=== PATIENT | female | born 1945 | race Hispanic/Latino ===

== ENCOUNTER 2018-06-27 17:22 | Inpatient (IN) | payer BC, MEDICARE ==
[~2018-06-27 17:22] MED LIST: ISOVUE-370 76%-LOCM 1 ML ONE
[2018-06-27 18:00] LABS: Base Excess-Venous -20.8 mmol/L (0 (+/- 2.5)); Bicarbonate (HCO3v) 12.5 mmol/L (1.0-85.0); CO2 Tension (PvCO2) 69.6 mmHg (41.0-51.0); Calcium, Ionized 1.09 mmol/L (1.12-1.32); Hemoglobin - Calc 10.4 g/dL (12.0-18.0); Lactate 12.13 mmol/L (0.50-2.20); O2 Tension (PvO2) 54.2 mmHg (35.0-45.0); Potassium 3.9 mmol/L (3.4-4.7); T. Carbon Dioxide 14.7 mmol/L (1.0-85.0); pH (Venous) 6.864 (7.35-7.45); vO2 Saturation-calc 59.8 % (94-98)
[2018-06-27] MEDS ORDERED: EPINEPHrine 1 mg/ml MDV (1ml Charge) ONE (18:00)
[2018-06-27] MEDS ORDERED: EPINEPHrine 1 MG/10 ML Abboject SYRINGE ONE (18:00)
[2018-06-27] MEDS ORDERED: Sodium Bicarb 50 MEQ/50 ML Abboject 8.4% SYRINGE ONE (18:00)
[2018-06-27] MEDS ORDERED: Calcium Chloride 1 GM/10 ML Abboject SYRINGE ONE (18:00)
[2018-06-27 18:09] LABS: Actual Bicarbonate (HCO3a) 15.7 mEq/L (22-28); Analyzer IN Cardio ER; CO2 Tension 56.2 mmHg (35.0-45.0); Calcium, Ionized 1.02 mmol/L (1.12-1.30); Carboxyhemoglobin (COHb) 0.3 gm% (0.0-3.0); Hemoglobin (Hb) 8.7 g/dL (12.0-16.0); O2 Tension (PaO2) 190.8 mmHg (> 70.0); Potassium - ABG Lab 3.86 mmol/L (3.70-5.30); pH, Arterial 7.06 (7.35-7.45)
[2018-06-27 18:10] LABS: Puncture Site RRA
[2018-06-27 18:50] LABS: Mean Corpuscular HGB CONC 29.7 g/dL (32.0-36.0); Mean Corpuscular Hemoglobin 26.2 pg (27.0-31.0); Mean Corpuscular Volume 88.2 fL (78.0-98.0); RBC Distribution Width 12.9 % (11.5-14.5); White Blood Cell (WBC) Count 20.3 thou/uL (4.8-10.8)
--- NOTE | 2018-06-27 18:58 | RAD ---
CHEST ONE VIEW: History: Chest pain Comparison: 11-10-16 FINDINGS: Cardiac silhouette is magnified. Pulmonary vasculature engorged with widespread reticular nodular int erstitial prominence. Mediastinum is midline with aortic calcification. Tip of an endotracheal cathet er overlies the thoracic inlet. Nasogastric tube is seen to the level of the distal esophagus but not seen to extend into the stomach. No evidence of pneumothorax. IMPRESSION: 1. Pulmonary edema. 2. Nasogastric tube should be advanced approximately 15 cm for better positioning. It appears to be c oiled over the posterior pharynx. 3. Endotracheal catheter is in good radiographic position. 4. Atherosclerosis. POS: [facility]
[2018-06-27 19:04] LABS: ALT (SGPT) 778 U/L (8-55); AST (SGOT) 742 U/L (5-34); Albumin 3.1 g/dL (3.4-4.8); Alkaline Phosphatase 107 U/L (40-150); Anion Gap 38 mmol/L (10-20); BUN (Urea Nitrogen) 23 mg/dL (9.8-20.1); Bilirubin, Total Less than 0.2 mg/dL (0.2-1.2); CK (CPK) 200 U/L (29-168); Calc. Creatinine Clearance 0 mL/min (70-130); Chloride 105 mmol/L (98-107); Estimated GFR-MDRD 34; Glucose 405 mg/dL (83-110); Potassium 4.3 mmol/L (3.5-5.1); Protein, Total 6.1 g/dL (6.0-8.3); Sodium 148 mmol/L (136-145)
--- NOTE | 2018-06-27 19:04 | CT ---
CT HEAD NONCONTRAST: History: Altered mental status. Comparison: 01-12-18 FINDINGS: There is no evidence of acute intracranial hemorrhage. Encephalomalacia in the left frontal lobe is s imilar in appearance to the prior study. At first glance, there is subtle loss in valentine white junction at the periphery and at each basal ganglia. Review of the patient's prior study, shows that this is a normal look for this patient. Dystrophic calcification is apparent at the basal ganglia bilaterally . IMPRESSION: Chronic type findings are stable. No acute intracranial abnormalities are reliably demonstrated. POS: [facility]
[2018-06-27 19:10] LABS: CKMB 5.2 ng/mL (0-6.6); Troponin I 0.145 ng/mL (< 0.028)
[2018-06-27 19:12] LABS: Carbon Dioxide 9 mmol/L (23-31)
[2018-06-27 19:14] LABS: Band 4 % (5-11); Lymphocytes 65 % (21-51); MDiff Complete? YES; Mean Platelet Volume 10.2 fL (7.4-10.4); Metamyelocyte 2 % (0-0); Monocytes 3 % (0-10); Neutrophil 26 % (42-75); PLT Morphology Comment Appears Decreased; Platelet Count 100 thou/uL (130-400); Poikilocytosis SLIGHT = 6-15 cells (100X) (0-5/hpf)
[2018-06-27] MEDS ORDERED: Acetaminophen 650 MG in Premix Bag 1 BAG IVPB PRN (19:51)
--- NOTE | 2018-06-27 20:22 | RAD ---
CHEST ONE VIEW: History: Nasogastric tube repositioning. Comparison: 06-27-18 FINDINGS: Nasogastric tube has been repositioned and now descends the stomach. Endotracheal catheter is in good radiographic position. IMPRESSION: Pulmonary edema and other findings are otherwise stable. POS: [facility]
[2018-06-27 20:28] LABS: Bilirubin Negative (Negative); Blood, Urine Large (Negative); Clarity CLOUDY (Clear); Glucose, Urine (Dipstick) 250 mg/dL (Negative); Leukocyte Negative (Negative); Nitrite Negative (Negative); Protein, Urine (Dipstick) > or equal to 300 mg/dL (Neg-Trace); Specific Gravity, Urine 1.014 (1.002-1.036); Urobilinogen 0.2 mg/dL (0.2-1.0); pH, Urine 6.5 (5.0-9.0)
[2018-06-27 20:32] LABS: Bacteria/HPF 1+ HPF (None Seen); Squamous Epithelial 21-50 HPF (0-3)
[2018-06-27 20:35] LABS: Pathc Cast-AUWi Flag 3.17 (0-2.49)
[2018-06-27 20:38] LABS: INR-International Normal Ratio 3.4; Prothrombin Time 34.6 SEC (12.0-14.7)
--- NOTE | 2018-06-27 20:42 | CT ---
CT ANGIO OF CHEST WITH IV CONTRAST AND 3D MIP IMAGING: History: Chest pain, dyspnea. FINDINGS: There is good contrast opacification of the pulmonary arteries and thoracic aorta with bovine origin of the great vessels. Endotracheal catheter and nasogastric tube are apparent. Endotracheal catheter approaches the stephen. Dense infiltrate is present at the right posterior lung base. Patchy areas of infiltrate also involve the right upper lobe and left lower lobe. No pneumothorax or mediastinal adenopathy are apparent. IMPRESSION: 1. No CT evidence of pulmonary embolus. 2. Dense bilateral parenchymal infiltrates may represent atelectasis given the appearance, or less li ritu, inflammation. POS: [facility]
[2018-06-27 20:48] LABS: PTT 155.7 SEC (22.9-36.1)
[2018-06-27] MEDS ORDERED: CCU Electrolyte Replacement 1 EACH FS ONE (21:12)
[2018-06-27] MEDS ORDERED: Dextrose 5% in Water 1,000 ML IV SCH (21:12)
[2018-06-27] MEDS ORDERED: Potassium Chloride 40 MEQ in Premix Bag 1 BAG IVPB PRN (21:27)
[2018-06-27] MEDS ORDERED: Potassium Chloride 20 MEQ TAB PO PRN (21:27)
[2018-06-27] MEDS ORDERED: Magnesium Oxide 400 MG TAB PO PRN ×2 (21:27)
[2018-06-27] MEDS ORDERED: Potassium Phosphate 12 MMOL in Sodium Chloride 0.9% 250 ML 250 ML IV PRN (21:27)
[2018-06-27] MEDS ORDERED: Potassium Chloride 40 MEQ in Sodium Chloride 0.9% 250 ML 250 ML IVPB PRN (21:27)
[2018-06-27] MEDS ORDERED: Potassium Phosphate 9 MMOL in Sodium Chloride 0.9% 100 ML IVPB PRN (21:27)
[2018-06-27] MEDS ORDERED: Magnesium 2 GM/NS 0.9% 100 ML 2 GM in Premix Bag 1 BAG IVPB PRN (21:27)
[2018-06-27] MEDS ORDERED: CCU ELECTROLYTE REPLACEMENT PROTOCOL FS PRN (21:27)
[2018-06-27] MEDS ORDERED: Potassium Phosphate 15 MMOL in Sodium Chloride 0.9% 250 ML 250 ML IV PRN (21:27)
[2018-06-27] MEDS: Norepinephrine 8 MG/0.9% NS 250 ML IVPB SCH (21:46)
[2018-06-27] MEDS ORDERED: Dextrose 50% Abboject 50 ML SYRINGE SLOW IVP PRN (22:01)
[2018-06-27] MEDS ORDERED: Dextrose 5% in Water 1,000 ML IV PRN (22:01)
[2018-06-27 22:03] VITALS: BMI 29.6
[2018-06-27 22:26] LABS: Lactic Acid 14.3 mmol/L (0.5-2.2)
[2018-06-27] MEDS: HumaLOG 300 UNITS/3 ML VIAL SC PRN (22:37)
[2018-06-27] MEDS: Piperacillin/Tazobactam 3.375 GM in Sodium Chloride 0.9% 100 ML IVPB SCH (23:19)
[2018-06-27] MEDS: EPINEPHrine 1 MG, Admixture Fee 1 EACH in Dextrose 5% in Water 250 ML IVPB SCH (23:51)
[2018-06-28] MEDS ORDERED: Sodium Chloride 0.9% 500 ML IV SCH (01:00)
--- NOTE | 2018-06-28 01:11 | CON ---
DATE OF CONSULTATION: 06/27/2018 REASON FOR CONSULTATION: Out of hospital arrest. HISTORY OF PRESENT ILLNESS: This is a 72-year-old female who apparently became unresponsive at home while using the bathroom earlier today. She received at least 30 minutes of CPR between family, para medics, and ER staff before achieving return of spontaneous circulation. She is a former employee of the hospital here. PAST MEDICAL HISTORY: 1. She has had a brain hemorrhage back in 10/2016. 2. Hypertension. 3. Breast cancer. PAST SURGICAL HISTORY: Did not require operative therapy of the previous brain hemorrhage. ALLERGIES: None. MEDICATIONS PRIOR TO ADMISSION: Not known at this time. REVIEW OF SYSTEMS: Cannot be obtained because the patient is unresponsive and on mechanical ventilat ion. PHYSICAL EXAMINATION: VITAL SIGNS: Heart rate 126, O2 sat 100%, temperature 95.9, blood pressure 112/51, respiratory rate 20. NEUROLOGIC: She has no spontaneous respirations. Her pupils are 4 mm, nonreactive to light. She guzman s no corneal reflex. No oculocephalic reflex. No gag reflex when her extremities were stimulated. She has no reflexes or response to pain. This exam was done with the patient not having received sed ation or paralytics. HEENT: Otherwise unremarkable except for 6.0 endotracheal tube in the mouth. NECK: She has a C-collar on. No obvious JVD, no bruits. LUNGS: Coarse breath sounds bilaterally. CARDIOVASCULAR: S1, S2 tachycardic without murmur. ABDOMEN: Soft, obese, nontender, nondistended. EXTREMITIES: Without clubbing, cyanosis, or edema. LABORATORY DATA: White blood cell count 20.3, hemoglobin 10, hematocrit 33.5, platelet count 100 wit h 4% bands, 26% neutrophils, 65% lymphocytes. Initial pH was 6.84. Repeat blood gas showed pH of 7. 06, pCO2 of 56, pO2 of 190 that was on SIMV rate 20, tidal volume 450, PEEP 5, pressure support 10, F iO2 70%. Sodium 142, potassium 3.9, chloride 112, CO2 of 9, BUN 23, creatinine 1.5, glucose 405, aida ous lactate 24.1, AST 742, ALT 778. CPK 200, CK-MB 5.2. Troponin is 0.145. Albumin is 3.1. IMAGING: The head CT performed did not show any acute intracranial hemorrhage. She has encephalomal acia, probably from the previous brain hemorrhage. Chest x-ray demonstrated cardiomegaly, some pulmo nary edema. ET tube was in good position. Nasogastric tube was in the mouth that has since been rep laced and advanced. ASSESSMENT: 1. Sudden . It would appear that the patient either had a pulmonary embolism or a cardiac arrh ythmia. It does not appear that she has had a myocardial infarction or any type of catastrophic cent ral nervous system event other than what is resulted with prolonged CPR. 2. Anoxic brain injury. PLAN: 1. The patient will be kept on mechanical ventilation and vasopressor for the time being. I spoke w ith the son. I was direct with him and told him I did not think this illness was survivable and I daniels spect the patient has probably advanced to brain , although that determination should probably b e made tomorrow morning. 2. We will go ahead and get a CT pulmonary angiogram to exclude the possibility of pulmonary embolis m. 3. She will be covered with broad-spectrum IV antibiotics, although I do not think the events have n ot resulted from sepsis-type situation. 3. She is Dr. Perry's patient. I will turn over care to him tomorrow.
[2018-06-28] MEDS ORDERED: Norepinephrine 8 MG/0.9% NS 250 ML ONE (02:16)
[2018-06-28] MEDS: Norepinephrine 8 MG/0.9% NS 250 ML IVPB SCH (02:17)
[2018-06-28] MEDS ORDERED: Norepinephrine 8 MG/0.9% NS 250 ML IVPB SCH (02:30)
[2018-06-28] MEDS ORDERED: Sodium Chloride 0.9% 500 ML IVPB SCH (03:15)
[2018-06-28] MEDS: HumaLOG 300 UNITS/3 ML VIAL SC PRN (04:52)
[2018-06-28] MEDS: EPINEPHrine 1 MG, Admixture Fee 1 EACH in Dextrose 5% in Water 250 ML IVPB SCH (04:53)
[2018-06-28] MEDS: Piperacillin/Tazobactam 3.375 GM in Sodium Chloride 0.9% 100 ML IVPB SCH (05:03)
[2018-06-28 05:38] LABS: ALT (SGPT) 747 U/L (8-55); AST (SGOT) 2161 U/L (5-34); Albumin 2.9 g/dL (3.4-4.8); Alkaline Phosphatase 134 U/L (40-150); Anion Gap 24 mmol/L (10-20); BUN (Urea Nitrogen) 33 mg/dL (9.8-20.1); Bilirubin, Total 0.3 mg/dL (0.2-1.2); Calc. Creatinine Clearance 22 mL/min (70-130); Calcium 8.2 mg/dL (7.8-10.44); Carbon Dioxide 13 mmol/L (23-31); Chloride 113 mmol/L (98-107); Estimated GFR-MDRD 20; Globulin 2.7 g/dL (2.4-3.5); Glucose 213 mg/dL (83-110); Potassium 2.5 mmol/L (3.5-5.1); Protein, Total 5.6 g/dL (6.0-8.3); Sodium 147 mmol/L (136-145)
[2018-06-28 05:54] LABS: Lactic Acid 13.8 mmol/L (0.5-2.2)
[2018-06-28 06:07] LABS: Band 33 % (5-11); Hemoglobin 9.6 g/dL (12.0-16.0); Lymphocytes 26 % (21-51); MDiff Complete? YES; Mean Corpuscular Hemoglobin 26.6 pg (27.0-31.0); Mean Corpuscular Volume 85.7 fL (78.0-98.0); Mean Platelet Volume 8.7 fL (7.4-10.4); Monocytes 4 % (0-10); Myelocyte 2 % (0-0); Neutrophil 35 % (42-75); PLT Morphology Comment Appears Adequate; Platelet Count 207 thou/uL (130-400); RBC Distribution Width 12.6 % (11.5-14.5); Red Blood Cell (RBC) Count 3.61 mill/uL (4.20-5.40); White Blood Cell (WBC) Count 13.3 thou/uL (4.8-10.8)
[2018-06-28 07:30] VITALS: BP 56/39
[2018-06-28 07:37] LABS: Actual Bicarbonate (HCO3a) 11.9 mEq/L (22-28); Base Excess (BEa) -17.4 mEq/L (-2.0 to +3.0); CO2 Tension 43.2 mmHg (35.0-45.0); Carboxyhemoglobin (COHb) 0.6 gm% (0.0-3.0); Hemoglobin (Hb) 9.4 g/dL (12.0-16.0)
--- NOTE | 2018-06-28 07:38 | PRG ---
DATE OF SERVICE: 06/28/2018 Thirty-five minutes critical care time. SUJECTIVE: The patient remains intubated on mechanical ventilation. There has been no change in her status overnight. She has become refractory to vasopressors. OBJECTIVE: VITAL SIGNS: On exam, temperature is 97.7, pulse 83, blood pressure 72/42. Total intake 2753 and ou tput 552. NEUROLOGIC: Neurologically, pupils are fixed and dilated. She has no oculocephalic reflex. She has no spontaneous respirations. She has no gag reflex. She has no withdrawal to stimulation in any of her extremities. She has no movement of her toes to Babinski. HEENT: Otherwise, unremarkable. NECK: No JVD. LUNGS: Coarse breath sounds. CARDIOVASCULAR: S1 and S2, regular. ABDOMEN: Soft. EXTREMITIES: No edema. LABORATORY DATA: Sodium 147, potassium 2.5, chloride 113, CO2 of 13, BUN 33, creatinine 2.3, glucose 213, lactate 13.8, AST 2161, ALT 747. ABG pending. White blood cell count 13.3, hemoglobin 9.6, he matocrit 30.9, platelet count 207. Chest x-ray demonstrates diffuse bilateral infiltrative changes, right greater than left. ASSESSMENT: 1. Probable clinical brain . 2. Prolonged CPR. 3. Cardiac arrest, which I think was probably secondary to cardiac arrhythmia. 4. Aspiration pneumonia. 5. Multiple organ failure. PLAN: Proceed with apnea testing to confirm clinical brain and then probably withdraw care aft erwards.
--- NOTE | 2018-06-28 07:41 | OP ---
DATE OF PROCEDURE: 06/27/2018 PROCEDURE: Central line placement. PREOPERATIVE DIAGNOSIS: Poor IV access, need for vasopressors support. POSTOPERATIVE DIAGNOSIS: Poor IV access, need for vasopressors support. ANESTHESIA: None. DESCRIPTION OF PROCEDURE: This was done on an emergent basis in the emergency room. His family was not present at that time. The left femoral area was cleansed with chlorhexidine and draped sterilely. Using modified Seldinger technique, a triple-lumen venous catheter was placed in the left femoral vein without difficulty. T hree ports flushed venous blood.
[2018-06-28 07:54] VITALS: TEMP 97.5
[2018-06-28 08:23] LABS: O2 Tension (PaO2) 20.3 mmHg (> 70.0); Puncture Site RFA; pH, Arterial 7.06 (7.35-7.45)
[2018-06-28] MEDS ORDERED: Pantoprazole 40 MG VIAL IVP SCH (09:00)
[2018-06-28] MEDS ORDERED: Enoxaparin Sodium 40 MG/0.4 ML SYRINGE SC SCH (09:00)
[2018-06-28] MEDS ORDERED: Prevnar 13-Val Conj/PF 0.5 ML SYRINGE IM ONE (09:00)
--- NOTE | 2018-06-28 09:26 | RAD ---
SINGLE VIEW OF THE CHEST: Comparison: 06-27-18 History: Ventilated patient with respiratory failure. FINDINGS: Single view of the chest shows a normal sized cardiomediastinal silhouette. The lines and tubes are u nchanged in position. Diffuse mixed alveolar and interstitial opacities are seen, unchanged. IMPRESSION: Stable exam. POS: [facility]
[2018-06-28] MEDS ORDERED: EPINEPHrine 4 MG, Admixture Fee 1 EACH in Dextrose 5% in Water 250 ML IVPB SCH (09:48)
--- NOTE | 2018-06-28 10:51 | HP ---
CHIEF COMPLAINT: Found down. HISTORY OF PRESENT ILLNESS: This patient is a 72-year-old female who apparently was found down by neli harris in her bathroom. She was down for possibly about 30 minutes. EMS was subsequently called and t he family attempted CPR with compressions. On arrival by EMS, the patient was intubated and ACLS was initiated. The patient received 3 rounds of epinephrine and had CPR in progress. She received an a mp of bicarbonate. Pulse ox was 86 to 88, D-stick was 498. The patient had initial rhythm of asysto le; however, she did have pulse recovered in the Emergency Department. There she was seen by Dr. Jerrod graham. She is currently maintained on ventilator and epinephrine drip with Levophed drip ordered. Th e patient has received no sedation. REVIEW OF SYSTEMS: Unobtainable due to the patient's unconscious state. PAST MEDICAL HISTORY: Primarily obtained from the records, indicate the patient has a history of hyp ertension. She also had a frontal lobe parenchymal bleed last year, which did not appear to require any surgical intervention. She also has a past medical history of breast cancer. PAST SURGICAL HISTORY: Mastectomy in the 1970s or 1980s. FAMILY HISTORY: Negative. SOCIAL HISTORY: The patient lives with son. No history of alcohol, tobacco, or drugs. Upon talking to the patient's family, her oldest son is her surrogate decision maker and at this point they have chosen not to do any further chest compressions. ALLERGIES: No known allergies. MEDICATIONS: Not verified at this time. PHYSICAL EXAMINATION: VITAL SIGNS: Most recent set of vitals, BP 95/53, pulse 120, respirations 20 on the vent, core tempe rature was 95.2, O2 sats 100%, again on the ventilator. GENERAL APPEARANCE: The patient is unresponsive on a ventilator. She has received no sedation, has no volitional movements. HEENT: The patient's pupils are slightly dilated bilaterally. They are nonreactive and she has no c orneal reflex. NECK: Supple and symmetric. Trachea is midline. HEART: Tachycardic without murmurs. LUNGS: Have harsh rales heard throughout all lung perez bilaterally. She is mechanically ventilate d. ABDOMEN: Slightly distended, slightly hypertympanic to percussion. No bowel sounds are heard. EXTREMITIES: Warm and dry without cyanosis, clubbing, or edema. LABORATORY AND X-RAY FINDINGS: EKG sinus tachycardia with some nonspecific T-wave changes. Chest x- ray shows pulmonary edema. CT brain shows chronic changes. Emergency Department course included 3 r ounds of epinephrine, 3 rounds of sodium bicarbonate, and aggressive fluid resuscitation with 2 liter s of fluids. She has antibiotics ordered. IMPRESSION AND PLAN: 1. Asystole of unknown etiology. The patient does have a history of brain bleed and could have had seizure-type activity. It is also possible she could have some pneumonia as by some of the pulmonary edema, although there is no evidence of a specific infiltrate. Urine does not look significantly in fected; however, she has extremely high lactic acid level likely due to the asystole. She is covered with Zosyn for antibiotics. 2. Apparent anoxic brain injury. The patient has no volitional activity with no sedation. She was very acidotic and we will continue supportive therapy for now. I have discussed the situation with t he patient's family. 3. Apparent multiorgan failure including renal failure. The patient is very oliguric at this time a nd likely has severe tubular necrosis secondary to the asystole. 3. Hyperglycemia. The patient carries no history of diabetes. We will perform Accu-Cheks and slidi ng scale insulin. 4. Shock. The patient remains on pressors. DISPOSITION: I have spoken to the patient's family. I explained that we will continue supportive ca re; however, they understand the gravity of the situation and the high level of concern for the possi bility of anoxic brain injury. They have opted not to have us perform any further chest compression should the current pressors and ventilator support failed to be adequate.
--- NOTE | 2018-06-29 14:59 | DIS ---
DATE OF ADMISSION: 06/27/2018 DATE OF : 06/28/2018 DISCHARGE DIAGNOSES: 1. Anoxic brain injury secondary to asystole. 2. Multiorgan failure including renal failure and pulmonary failure. 3. Hyperglycemia. 4. Cardiogenic shock. HISTORY OF PRESENT ILLNESS: The patient is a 72-year-old female with a past medical history of prior frontal lobe parenchymal bleed prior year and also history of hypertension and the patient was simpl y found unresponsive in her bathroom after she had been in there for approximately 30 minutes or more . CPR was started and EMS activated. On the arrival of EMS, they initiated and the patient re ceived 3 rounds of epinephrine while CPR was in progress. She also received an amp of bicarbonate. Her blood sugar was 498, O2 sat at that time was 86%-88%. They were able to recover rhythm in the em ergency department; however, the patient had a prolonged period circulation. The patient was m aintained on the ventilator and epinephrine drip and subsequently admitted to the ICU. HOSPITAL COURSE: The patient was maintained in the ICU overnight on the ventilator initially with ep inephrine drip to maintain blood pressures. She subsequently had the addition of Levophed through th e night. These were no longer adequate to maintain the patient's blood pressure in spite of aggressi ve titration. The following morning, the plan was to perform apnea testing to see if there was any e vidence of brain function as there had not been any evidence of breathing above the event or having a ny volitional activity in spite of receiving no sedation. However, the patient went into a pulseless electrical activity the following morning and the ventilator was turned off. There was no evidence of spontaneous respirations and patient was subsequently pronounced .
--- NOTE | 2018-07-02 07:41 | DS ---
DATE OF ADMISSION: 06/27/2018 DATE OF EXPIRATION: 06/28/2018 FINAL DIAGNOSES: 1. Cardiac arrest with return of spontaneous circulation. 2. Anoxic brain injury. 3. Aspiration pneumonia. 4. Metabolic acidosis. 5. Liver shock. 6. Cardiogenic shock. CONSULTATIONS: Dr. Bose with Pulmonology Critical Care Service. PERTINENT LAB AND X-RAY FINDINGS: Sodium ranged between 147 to 148, potassium ranged between 2.5-4.3 , CO2 level ranged between 9-13, creatinine ranged between 1.49-2.35. Lactic acid level ranged betwe en 13.8-24.1. AST ranged between 742-2161, ALT ranged between 747-778. CBC showed a white blood evelia l count ranging between 13.3-20.3, hemoglobin ranged between 9.6-10.0. PTT 34.6, INR 3.4, PTT 156. CT of the brain without contrast dated 06/27/2018 showed chronic changes without acute process. Port able chest x-ray dated 06/27/2018 showed pulmonary edema with nasogastric tube. Endotracheal tube in appropriate position. CT angiogram of the chest dated 06/27/2018 showed no evidence for pulmonary e mbolus. Bilateral parenchymal infiltrates, likely due to atelectasis. HOSPITAL COURSE: Patient was admitted to the Critical Care Unit after presenting in cardiac arrest, requiring ACLS and CPR protocols. The patient received aggressive ACLS protocol with 3 ampules of ep inephrine in addition to sodium bicarbonate and chest compressions. The patient achieved return of s pontaneous circulation in the emergency room and was placed on epinephrine and Levophed infusions. T he patient underwent placement of a right femoral central catheter and transferred to the Critical Ca re Unit on mechanical ventilation. The patient was initially noted asystolic with return of spontane ous circulation and vasopressor dependent. The patient exhibited no evidence of brain activity or re flexes during the hospital course. Due to the patient's prolonged anoxic insult, the patient was giv en an apnea test per pulmonology recommendations. Vital signs were unstable with hypotension and bra dycardia. Due to the patient's multitude of organ failure, severe lactic acidosis and prolonged card iac arrest, discussions were had with the family regarding withdrawal of care. The patient subsequen margarita on 06/28/2018 at 9:48 a.m. Family were notified of patient's expiration, and postmortem care initiated.
== END 2018-06-28 09:48 | disposition expired | DRG 296 ==
LOC: ERS 17:22 → CCU 19:40
PROVIDERS: ADMIT Internal Medicine; ATTEND Internal Medicine
PROC: 5A1935Z Respiratory Ventilation, Less than 24 Consecutive Hours (ICD-10-PCS; principal; 2018-06-27)
PROC: 3E033XZ Introduction of Vasopressor into Peripheral Vein, Percutaneous Approach (ICD-10-PCS; 2018-06-27)
PROC: 06HN33Z Insertion of Infusion Device into Left Femoral Vein, Percutaneous Approach (ICD-10-PCS; 2018-06-27)
PROC: 0D9670Z Drainage of Stomach with Drainage Device, Via Natural or Artificial Opening (ICD-10-PCS; 2018-06-27)
PROC: 5A12012 Performance of Cardiac Output, Single, Manual (ICD-10-PCS; 2018-06-27)
DX: I46.9 Cardiac arrest, cause unspecified (principal); N17.0 Acute kidney failure with tubular necrosis; J69.0 Pneumonitis due to inhalation of food and vomit; K72.00 Acute and subacute hepatic failure without coma; G93.1 Anoxic brain damage, not elsewhere classified; E87.2 Acidosis; J98.11 Atelectasis; I10 Essential (primary) hypertension; R73.9 Hyperglycemia, unspecified; Z85.3 Personal history of malignant neoplasm of breast
CPT/HCPCS: 36416; 51702; 70450; 71045; 71275; 80053; 81003; 81015; 82330; 82435; 82550; 82553; 82565; 82803; 82805; 82947; 83605; 84132; 84295; 84484; 85014; 85025; 85610; 85730; 90471; 90670; 93005; 94002; 94003; 94760; 96365; 96366; 96375; 96376; 99292; G0009; J0171; J2543; J3480; J7050; J7070